=== PATIENT | male | born 1985 | race African-American/Black ===

== ENCOUNTER 2021-08-24 18:34 | Emergency (ER) | payer SELFPAY ==
[~2021-08-24] VITALS: Ht 172.7 cm; Wt 104.3 kg
[2021-08-24 19:43] VITALS: BP 128/93
[2021-08-24] MEDS ORDERED: IBUP800T26 PO (21:41)
[2021-08-24] MEDS ORDERED: METH4PAK PO (21:41)
== END 2021-08-24 21:55 | disposition home or self-care (01) ==
LOC: ER 18:34
DX: S63.92XA Sprain of unspecified part of left wrist and hand, initial encounter (principal); S60.222A Contusion of left hand, initial encounter; X58.XXXA Exposure to other specified factors, initial encounter; Y93.89 Activity, other specified; Y92.89 Other specified places as the place of occurrence of the external cause; Y99.8 Other external cause status
CPT/HCPCS: 29125; 73130

== ENCOUNTER → 2021-12-30 | Emergency (ER) | payer MEDICAID ==
[~2021-12-30] VITALS: Ht 172.7 cm; Wt 99.0 kg
[~2021-12-30] MED LIST: ACETAMINOPHEN 325 MG TAB PO ONE; IBUP800T26 PO; METH4PAK PO
[2021-12-30 21:13] LABS: Eosinophils # (auto) 0 10 ^3/uL (0-0.8); Hemoglobin 16.6 g/dL (13.5-17.5); Monocytes # (auto) 0.5 10 ^3/uL (0-1.3); Neutrophils # (auto) 3.9 10 ^3/uL (1.6-8.6); Red Cell Distribution Width 14.3 % (11.8-14.3); White Blood Cell 6.7 10^3/uL (4.4-10.8)
[2021-12-30 21:16] LABS: Basophils # (auto) 0.1 10 ^3/uL (0-0.2); Basophils % (auto) 0.9 % (0.0-2.0); Eosinophils % (auto) 0.5 % (0.0-7.0); Hematocrit 49.8 % (41.0-53.0); Lymphocytes # (auto) 2.2 10 ^3/uL (0.4-5.4); Lymphocytes % (auto) 33.2 % (10.0-50.0); Mean Corpuscular Hemoglobin 26.9 pg (28.0-32.0); Mean Corpuscular Hgb Conc. 33.3 g/dL (32.0-36.0); Mean Corpuscular Volume 80.8 fL (80.0-100.0); Monocytes % (auto) 7.4 % (0.0-12.0); Nucleated Red Blood Cells % 0.1 %; Red Blood Cells 6.17 10^6/uL (4.5-5.90)
[2021-12-30 21:28] LABS: INR 1.06 (0.9-1.15); Partial Thromboplastin Time 30.8 sec (24.6-33.4)
[2021-12-30 21:30] LABS: Albumin 4.5 g/dL (3.4-5.0); Calcium 9.7 mg/dL (8.5-10.1); Magnesium 2.2 mg/dL (1.6-2.6); Potassium 4.1 mmol/L (3.5-5.1)
[2021-12-30 21:37] LABS: BUN/Creatinine Ratio 12.1; Bilirubin, Total 0.8 mg/dL (0.2-1.0); Total Protein 7.8 g/dL (6.4-8.2)
[2021-12-30 23:56] LABS: Urine Bacteria NONE SEEN /hpf (None Seen); Urine Blood Negative /uL (Negative); Urine Hyaline Cast FEW /lpf (0 - 2); Urine Mucus FEW (None Seen); Urine Specific Gravity 1.024 (1.001-1.035); Urine WBC 3 /hpf (0 - 3)
[2021-12-31 06:25] VITALS: BP 122/82
== END | disposition home or self-care (01) ==
LOC: ER 20:10
DX: R07.89 Other chest pain (principal); F17.210 Nicotine dependence, cigarettes, uncomplicated; Z88.0 Allergy status to penicillin
CPT/HCPCS: 36415; 71046; 80053; 81001; 83735; 83880; 84484; 85025; 85610; 85730; 93005